=== PATIENT | female | born 1970 | race Two or more races ===

== ENCOUNTER 2024-07-26 08:39 | Outpatient (CLI) | payer MEDICARE, MEDICAID ==
[~2024-07-26 08:39] MED LIST: FLUO20CA39 PO; HYDR-3965 PO; NAPR-232 PO; VAL2T PO
== END 2024-07-26 23:59 | disposition home or self-care (01) ==
LOC: RAD 08:39
PROVIDERS: ATTEND Family Medicine
DX: Z12.2 Encounter for screening for malignant neoplasm of respiratory organs (principal); J44.9 Chronic obstructive pulmonary disease, unspecified; J98.4 Other disorders of lung; R91.1 Solitary pulmonary nodule
CPT/HCPCS: 71271